=== PATIENT | male | born 1965 | race Caucasian/White ===

== ENCOUNTER 2022-12-12 12:32 | Emergency (ER) | payer BC ==
[~2022-12-12] VITALS: Ht 177.8 cm; Wt 65.8 kg
[2022-12-12] MEDS ORDERED: SUBOXONE 8 MG-1 EACH SL (13:17)
[2022-12-12 13:21] VITALS: BP 158/91
[2022-12-12] MEDS ORDERED: ELIQUIS5 M2 PO (13:21)
[2022-12-12] MEDS ORDERED: LISI5 PO (13:21)
[2022-12-12] MEDS ORDERED: Prednisone10 MG PO (13:21)
== END 2022-12-12 13:30 | disposition home or self-care (01) ==
LOC: ER 12:32
DX: Z76.0 Encounter for issue of repeat prescription (principal); G89.29 Other chronic pain; I10 Essential (primary) hypertension; Z79.01 Long term (current) use of anticoagulants; Z79.899 Other long term (current) drug therapy
CPT/HCPCS: 99281; A9270